=== PATIENT | female | born 1980 | race Caucasian/White ===

== ENCOUNTER 2016-11-17 14:11 | Emergency (ER) | payer BC, OTHER ==
[~2016-11-17] VITALS: Ht 165.1 cm; Wt 74.6 kg
[~2016-11-17 14:11] MED LIST: AMB10 PO; DIAZ10TA PO; DSY50 PO; OXYC-57 PO
[2016-11-17 14:17] VITALS: Ht 165.1 cm; Wt 74.6 kg
[2016-11-17] MEDS ORDERED: KETOROLAC TROMETHAMINE 30 MG/ML VIAL IV STA (15:19)
[2016-11-17] MEDS ORDERED: SODIUM CHLORIDE 0.9% 1000ML 1,000 ML IV STA (15:19)
[2016-11-17] MEDS ORDERED: ONDANSETRON INJ 2 MG/ML 2 ML VIAL IV STA (15:19)
[2016-11-17] MEDS ORDERED: OPTIRAY 320 IV PRN (15:30)
[2016-11-17 15:58] LABS: BASO % 0.1 %; BASO ABS # 0.01 K/uL (0-0.2); COMPLETE YES; EOS % 0.7 %; HEMATOCRIT 41.3 % (37-47); IG% 0.2 %; LYMPH % 11.8 %; LYMPH ABS # 1.43 K/uL (1.2-3.4); MEAN CELL VOLUME 92.4 fL (80-100); MEAN CORPUSCULAR HEMOGLOBIN 31.3 pg (25-34); MEAN CORPUSCULAR HGB CONC 33.9 g/dl (32-36); MEAN PLATELET VOLUME 9.8 fL (7.4-10.4); MONO % 6.3 %; NEUT % 80.9 %; PLATELET COUNT 224 K/uL (130-400); RED BLOOD COUNT 4.47 M/uL (4.2-5.4); WHITE BLOOD COUNT 12.08 K/uL (4.8-10.8)
[2016-11-17 16:09] LABS: URINE APPEARANCE CLOUDY (CLEAR); URINE BILIRUBIN NEG (NEG); URINE COLOR DK YELLOW; URINE EPITHELIAL CELL AUTO >30 /lpf (0-5); URINE NITRITE NEG (NEG); URINE SPECIFIC GRAVITY 1.027 (1.000-1.030); UROBILINOGEN NEG (NEG); ZZUR CULT IF INDIC CLEAN CATCH YES
[2016-11-17 16:16] LABS: MANUAL MICROSCOPIC REQUIRED? NO; REVIEW REQ? YES
[2016-11-17 16:17] LABS: ALT/SGPT 38 U/L (12-78); BLOOD UREA NITROGEN 6 mg/dl (7-18); BUN/CREATININE RATIO 7.2 (10-20); CALCIUM 8.9 mg/dl (8.5-10.1); CARBON DIOXIDE 24 mmol/L (21-32); CHLORIDE 107 mmol/L (98-107); CREATININE 0.85 mg/dl (0.60-1.20); GLUCOSE 99 mg/dl (70-99); POTASSIUM 3.7 mmol/L (3.5-5.1); SODIUM 140 mmol/L (136-145)
[2016-11-17 16:20] LABS: ALKALINE PHOSPHATASE 75 U/L (45-117); AST/SGOT 37 U/L (15-37)
--- NOTE | 2016-11-17 17:31 | DIAGNOSTIC IMAGING REPORT ---
ABDOMEN AND PELVIS CT WITH IV CONTRAST CT DOSE: 375.94 mGy.cm HISTORY: Epigastric abdominal pain. TECHNIQUE: Multiaxial CT images of the abdomen and pelvis were performed following the use of intravenous contrast. COMPARISON STUDY: Abdomen and pelvis CT 06/21/2013. FINDINGS: The lung bases are clear. The liver, spleen, gallbladder, pancreas, kidneys, and adrenal glands are within normal limits. No bowel wall thickening or obstruction. The pelvic organs are unremarkable. No suspicious lytic or blastic osseous lesions. Normal appendix. IMPRESSION: No significant abnormality identified within the abdomen or pelvis. Electronically signed by: Tiago Mariano M.D. 11/17/2016 5:29 PM
[2016-11-17] MEDS ORDERED: ONDA4TAB46 PO (17:45)
[2016-11-17 17:59] VITALS: BP 99/57; PULSE 78; TEMP 36.7; O2SAT 100
--- NOTE | 2016-11-17 18:56 | EMERGENCY ROOM VISIT NOTE ---
History Report prepared by Josh: Marcie Porter Under the Supervision of: Dr. Rocco Santana D.O. First contact with patient: 15:02 Chief Complaint: ABDOMINAL PAIN Stated Complaint: SEVERE ABD. PAIN, VOMITING, DIARRHEA Nursing Triage Summary: pt c/o severe abd pain starting today 1 loose stool 2 emesis History of Present Illness The patient is a 36 year old female who presents to the Emergency Room with complaints of constant diffuse abdominal pain that started this morning. She tried to relieve the pain with a heating pad and it offered minimal relief. The patient is also experiencing nausea and vomiting. She experienced two episodes of vomiting. After the first episode of vomiting she experienced some relief of her pain. Additionally, she experienced one episode of diarrhea. She also experienced some relief of her pain after having diarrhea but not as much relief as the second episode of vomiting. She took some painkillers for the pain but they offered her no relief. The patient denies previous abdominal surgeries as well as recent sick contacts. She is near the end of her menstrual cycle and denies any chance of . She also denies any abnormal vaginal bleeding or discharge along with pain or burning with urination. Source of History: patient Onset: this morning Position: abdomen (diffuse) Timing: constant Modifying Factors (Relieving): other (vomiting, diarrhea) Associated Symptoms: + diarrhea, + nausea, + vomiting, No urinary symptoms ( pain or burning with urination) Note: no abnormal vaginal bleeding or discharge Review of Systems See HPI for pertinent positives & negatives. A total of 10 systems reviewed and were otherwise negative. Past Medical & Surgical Medical Problems: (1) Bipolar disorder Family History No pertinent family history Social History Smoking Status: Current Some Day Smoker Alcohol Use: occasionally Marital Status: Housing Status: lives with family Occupation Status: unemployed Current/Historical Medications Scheduled Cyclobenzaprine Hcl (Flexeril), 10 MG PO DIRECTED Diazepam (Valium), 6.25 MG PO BID Epinephrine (Epipen), 0.3 MG IM UD [place] Carbonate Ext Rel (Lithobid Ext Rel), 300 MG PO TID Sertraline Hcl (Zoloft), 50 MG PO DAILY Trazodone Hcl (Desyrel *), 50 MG PO HS Scheduled PRN Ondansetron Hcl (Zofran), 4 MG PO TID PRN for Nausea Oxycodone/Acetaminophen 5MG/325MG (Percocet 5MG/325MG), 1-2 TABS PO Q4H PRN for Pain Miscellaneous Medications Zolpidem Tartrate (Ambien *), 10 MG PO Allergies Coded Allergies: POLLEN (Unverified Allergy, Unknown, SEASONAL ALLERGIES, 11/17/16) Physical Exam Vital Signs Date Time Temp Pulse Resp B/P Pulse Ox O2 Delivery O2 Flow Rate FiO2 11/17/16 17:59 36.7 78 18 99/57 100 11/17/16 16:31 78 18 99/57 100 11/17/16 14:17 36.7 95 20 97/64 98 Room Air Physical Exam GENERAL: alert, sitting up in bed, well appearing, well nourished, no distress, non-toxic EYE EXAM: normal conjunctiva OROPHARYNX: no exudate, no erythema, lips, buccal mucosa, and tongue normal and mucous membranes are moist NECK: supple, no nuchal rigidity, no adenopathy, non-tender LUNGS: Clear to auscultation. Normal chest wall mechanics HEART: no murmurs, S1 normal and S2 normal ABDOMEN: abdomen soft, tender in epigastric region, normo-active bowel sounds, no masses, no rebound or guarding. BACK: Back is symmetrical on inspection and there is no deformity, no midline tenderness, no CVA tenderness. SKIN: no rashes and no bruising UPPER EXTREMITIES: upper extremities are grossly normal. LOWER EXTREMITIES: No pitting edema. NEURO EXAM: Normal sensorium, cranial nerves II-XII grossly intact, normal speech, no gross weakness of arms, no gross weakness of legs. Medical Decision & Procedures ER Provider Diagnostic Interpretation: CT results have been interpreted by the radiologist and reviewed by me. ABDOMEN AND PELVIS CT WITH IV CONTRAST CT DOSE: 375.94 mGy.cm HISTORY: Epigastric abdominal pain. TECHNIQUE: Multiaxial CT images of the abdomen and pelvis were performed following the use of intravenous contrast. COMPARISON STUDY: Abdomen and pelvis CT 06/21/2013. FINDINGS: The lung bases are clear. The liver, spleen, gallbladder, pancreas, kidneys, and adrenal glands are within normal limits. No bowel wall thickening or obstruction. The pelvic organs are unremarkable. No suspicious lytic or blastic osseous lesions. Normal appendix. IMPRESSION: No significant abnormality identified within the abdomen or pelvis. Electronically signed by: Tiago Mariano M.D. 11/17/2016 5:29 PM Laboratory Results 1/3/17 15:35 Red Blood Count 4.47, Mean Corpuscular Volume 92.4, Mean Corpuscular Hemoglobin 31.3, Mean Corpuscular Hemoglobin Concent 33.9, Mean Platelet Volume 9.8, Neutrophils (%) (Auto) 80.9, Lymphocytes (%) (Auto) 11.8, Monocytes (%) (Auto) 6.3, Eosinophils (%) (Auto) 0.7, Basophils (%) (Auto) 0.1, Neutrophils # (Auto) 9.76, Lymphocytes # (Auto) 1.43, Monocytes # (Auto) 0.76, Eosinophils # (Auto) 0.09, Basophils # (Auto) 0.01 11/17/16 15:35 Test 11/17/16 15:30 11/17/16 15:35 Urine Color DK YELLOW Urine Appearance CLOUDY (CLEAR) Urine pH 5.0 (4.5-7.5) Urine Specific [place] 1.027 (1.000-1.030) Urine Protein NEG (NEG) Urine Glucose (UA) NEG (NEG) Urine Ketones NEG (NEG) Urine Occult Blood NEG (NEG) Urine Nitrite NEG (NEG) Urine Bilirubin NEG (NEG) Urine Urobilinogen NEG (NEG) Urine Leukocyte Esterase SMALL (NEG) Urine WBC (Auto) 10-30 /hpf (0-5) Urine RBC (Auto) 0-4 /hpf (0-4) Urine Hyaline Casts (Auto) 1-5 /lpf (0-5) Urine Epithelial Cells (Auto) >30 /lpf (0-5) Urine Bacteria (Auto) 1+ (NEG) Urine Renal Epithelial Cells /lpf (0-5) Urine Crystals CALCIUM OXALATE (NONE Urine Pathogenic Casts /lpf (0) Urine Test NEG (NEG) White Blood Count 12.08 K/uL (4.8-10.8) Red Blood Count 4.47 M/uL (4.2-5.4) Hemoglobin 14.0 g/dL (12.0-16.0) Hematocrit 41.3 % (37-47) Mean Corpuscular Volume 92.4 fL (80-100) Mean Corpuscular Hemoglobin 31.3 pg (25-34) Mean Corpuscular Hemoglobin Concent 33.9 g/dl (32-36) Platelet Count 224 K/uL (130-400) Mean Platelet Volume 9.8 fL (7.4-10.4) Neutrophils (%) (Auto) 80.9 % Lymphocytes (%) (Auto) 11.8 % Monocytes (%) (Auto) 6.3 % Eosinophils (%) (Auto) 0.7 % Basophils (%) (Auto) 0.1 % Neutrophils # (Auto) 9.76 K/uL (1.4-6.5) Lymphocytes # (Auto) 1.43 K/uL (1.2-3.4) Monocytes # (Auto) 0.76 K/uL (0.11-0.59) Eosinophils # (Auto) 0.09 K/uL (0-0.5) Basophils # (Auto) 0.01 K/uL (0-0.2) RDW Standard Deviation 40.8 fL (36.4-46.3) RDW Coefficient of Variation 12.1 % (11.5-14.5) Immature Granulocyte % (Auto) 0.2 % Immature Granulocyte # (Auto) 0.03 K/uL (0.00-0.02) Anion Gap 9.0 mmol/L (3-11) Est Creatinine Clear Calc Drug Dose 92.5 ml/min Estimated GFR () 102.2 Estimated GFR (Non- 88.2 BUN/Creatinine Ratio 7.2 (10-20) Calcium Level 8.9 mg/dl (8.5-10.1) Total Bilirubin 0.2 mg/dl (0.2-1) Direct Bilirubin < 0.1 mg/dl (0-0.2) Aspartate Amino Transf (AST/SGOT) 37 U/L (15-37) Alanine Aminotransferase (ALT/SGPT) 38 U/L (12-78) Alkaline Phosphatase 75 U/L (45-117) Total Protein 7.5 gm/dl (6.4-8.2) Albumin 4.0 gm/dl (3.4-5.0) Lipase 131 U/L (73-393) Laboratory results per my review. Medications Administered Medications (Trade) Dose Ordered Sig/Maria D Route Start Time Stop Time Status Last Admin Dose Admin Sodium Chloride (Nss 1000ml) 1,000 ml @ 999 mls/hr Q1H1M STAT IV 11/17/16 15:19 11/17/16 16:19 DC 11/17/16 15:19 999 MLS/HR Ondansetron HCl (Zofran Inj) 4 mg NOW STAT IV 11/17/16 15:19 11/17/16 15:20 DC 11/17/16 15:50 4 MG Ketorolac Tromethamine (Toradol Inj) 30 mg NOW STAT IV 11/17/16 15:19 11/17/16 15:20 DC 11/17/16 15:50 30 MG ED Course ED COURSE: Vital signs were reviewed and showed hypotensive. The patients medical record was reviewed The above diagnostic studies were performed and reviewed. ED treatments and interventions as stated above. 1506: The patient was evaluated in room A8. A complete history and physical examination was performed. 1519: Ordered Toradol 30 mg IV, Zofran 4 mg IV, Sodium Chloride 1000 ml @ 999 mls/hr IV 1553: I reassessed the patient. She is doing much better. 1743: Upon reevaluation, the patient is doing well. I discussed my findings with the patient and she understands and agrees with the treatment plan. Based on the patients age, coexisting illnesses, exam and lab findings the decision to treat as an outpatient was made. The patient remained stable while under my care. The patient appeared well at the time of discharge. Medical Decision Differential diagnoses includes but is not limited to gastritis, peptic ulcer disease, GERD, gallbladder disease, pancreatitis, small bowel obstruction, acute coronary syndrome, pericarditis, ischemic bowel, irritable bowel disease, irritable bowel syndrome, appendicitis, diverticulitis, malignancy, hernia, urinary tract infection, torsion, /ectopic , perforation, trauma, infectious. Patient is a 36-year-old female who presents the ER for epigastric abdominal pain. It's associated with vomiting and one episode of diarrhea. On exam she is no acute signs peritonitis. CBC has a leukocytosis of 12,000 without significant anemia. BMP along with LFTs, bilirubin and lipase are unremarkable. UA was contaminated. She had no urinary symptoms. CT of her abdomen pelvis was negative. On reevaluation her abdomen was on skin benign. She was given IV morphine along with normal saline and Zofran. Patient was discharged follow-up with epigastric abdominal pain to her PCPs office. Discussed with Pt concerning signs and symptoms to watch out for. Pt was instructed to follow up with their PCP and discussed with the patient their option to return to the ED at anytime for persistent or worsening symptoms. The appropriate anticipatory guidance and out-patient management, including indications for return to the emergency department, were explained at length to the patient and understood. Impression Primary Impression: Epigastric abdominal pain Scribe Attestation The scribe's documentation has been prepared under my direction and personally reviewed by me in its entirety. I confirm that the note above accurately reflects all work, treatment, procedures, and medical decision making performed by me. Departure Information Dispostion Home / Self-Care Prescriptions Ondansetron Hcl (ZOFRAN) 4 Mg Tab 4 MG PO TID Y for Nausea, #20 TAB Prov: Rocco Santana, DO 11/17/16 Referrals Rowdy Jordan M.D. (PCP) Forms Call Back Authorization, HOME CARE DOCUMENTATION FORM, IMPORTANT VISIT INFORMATION, My [facility] Patient Instructions Abdominal Pain - [facility] Additional Instructions Please follow up with your primary care doctor in the next 24 hours. Any worsening of your symptoms, please return to the ED immediately. This includes any fevers greater than 100.4, persistent nausea vomiting, worsening the pain, or any other concerning signs or symptoms from your standpoint.
[2016-11-26] MEDS ORDERED: FEXO1TAB49 PO (14:15)
[2017-04-13] MEDS ORDERED: EPP3/2 IM (10:29)
[2017-04-13] MEDS ORDERED: LITH1TAB10 PO (10:37)
[2017-04-13] MEDS ORDERED: SERT1TAB71 PO (10:56)
== END 2016-11-17 18:00 | disposition home or self-care (01) ==
LOC: C.EDB 14:15 → C.EDA 18:00
DX: R10.13 Epigastric pain (principal); R11.2 Nausea with vomiting, unspecified; F31.9 Bipolar disorder, unspecified; F17.210 Nicotine dependence, cigarettes, uncomplicated; Z79.899 Other long term (current) drug therapy

== ENCOUNTER → 2016-11-26 | Outpatient (CLI) | payer BC ==
[~2016-11-26] MED LIST changes: +CYCL10TA6 PO; +DIAZ5TAB PO; +EPP3/2 IM; +FEXO1TAB45 PO; +FEXO1TAB49 PO; +FEXO5TAB2 PO; +LITH1TAB10 PO; +ONDA4TAB10 SL; +ONDA4TAB46 PO; +SERT1TAB71 PO; +ZOLP10TA6 PO
--- NOTE | 2016-11-26 15:46 | DIAGNOSTIC IMAGING REPORT ---
CERVICAL SPINE 5 VIEWS CLINICAL HISTORY: Cervical facet syndrome. FINDINGS: AP, lateral, bilateral oblique, and odontoid views of the cervical spine are obtained. No prior studies are available for comparison at the time of dictation. The skeletal structures are well mineralized. There is no radiographic evidence of fracture or subluxation. The odontoid process and lateral masses appear intact on the open mouth view. The spinolaminar line is preserved. Vertebral body height and alignment are maintained. There is straightening of cervical lordosis with mild reversal centered at C5. The spinous processes appear intact. Small anterior osteophytes are seen from C5 through C7. There is mild degenerative disc space narrowing seen at C6-C7 and C7-T1. The remaining intervertebral disc spaces are normal. No facet arthropathy is identified. There is no evidence of neuroforaminal stenosis on the oblique views. The prevertebral soft tissues are within normal limits. Visualized apical lung parenchyma appears clear. IMPRESSION: 1. No acute bony abnormality is seen involving the cervical spine. 2. Minimal degenerative change as above. Electronically signed by: Jose Delarosa M.D. 11/26/2016 3:45 PM Dictated Date/Time: 11/26/2016 3:43 PM
== END | disposition home or self-care (01) ==
LOC: C.RADBC 15:25
PROVIDERS: ATTEND Anesthesiology
DX: M53.82 Other specified dorsopathies, cervical region (principal)

== ENCOUNTER 2017-02-26 20:58 | Emergency (ER) | payer BC ==
[~2017-02-26] VITALS: Ht 152.4 cm; Wt 77.4 kg
[~2017-02-26 20:58] MED LIST changes: -CYCL10TA6 PO; -DIAZ5TAB PO; -EPP3/2 IM; -FEXO1TAB45 PO; -FEXO5TAB2 PO; -LITH1TAB10 PO; -ONDA4TAB10 SL; -ONDA4TAB46 PO; -OXYC-57 PO; -SERT1TAB71 PO; -ZOLP10TA6 PO
[2017-02-26 21:03] VITALS: TEMP 36.8; Ht 152.4 cm; Wt 77.4 kg
[2017-02-26] MEDS ORDERED: SODIUM CHLORIDE 0.9% 1000ML 1,000 ML IV STA (21:28)
[2017-02-26] MEDS ORDERED: MoRPHine SULFATE 10 MG/ML CARP/VIAL IV STA (21:28)
[2017-02-26] MEDS ORDERED: PROMETHAZINE HCL INJ 25 MG in SODIUM CHLORIDE 0.9% 50ML 50 ML IV STA (21:28)
--- NOTE | 2017-02-26 21:29 | EMERGENCY ROOM VISIT NOTE ---
History Report prepared by Josh: Silvia Abraham Under the Supervision of: Dr. Leonides Berrios M.D. First contact with patient: 21:09 Chief Complaint: GI ASSESSMENT Stated Complaint: ABD PAIN,NAUSEA,DIARRHEA History of Present Illness The patient is a 36 year old female who presents to the Emergency Room with complaints of intermittent severe abdominal pain beginning today. The patient also notes that she is experiencing nausea and diarrhea. She notes she has had multiple episodes of diarrhea. She did take Zofran this afternoon and had no changes in her symptoms. The patient denies chance, abdominal surgery , or recent antibiotic use. Source of History: patient Onset: today Position: abdomen Symptom Intensity: severe Timing: intermittent Associated Symptoms: + diarrhea, + nausea Note: The patient denies chance, abdominal surgery, or recent antibiotic use. Review of Systems See HPI for pertinent positives & negatives. A total of 10 systems reviewed and were otherwise negative. Past Medical & Surgical Medical Problems: (1) Bipolar disorder Family History No pertinent family history Social History Smoking Status: Never Smoker Alcohol Use: occasionally Marital Status: Housing Status: lives with family Occupation Status: unemployed Current/Historical Medications Scheduled Diazepam (Valium), 7.5 MG PO BID Fexofenadine Hcl (Yudith), 120 MG PO DAILY [place] Carbonate Ext Rel (Lithobid Ext Rel), 300 MG PO TID Ondasetron Odt (Zofran Odt), 4 MG SL Q6H Sertraline Hcl (Zoloft), 50 MG PO DAILY Trazodone HCl (Trazodone HCl), 50 MG PO HS Zolpidem Tartrate (Zolpidem Tartrate), 10 MG PO HS Scheduled PRN Cyclobenzaprine Hcl (Flexeril), 10 MG PO UD PRN for Muscle Spasm Epinephrine (Epipen), 0.3 MG IM UD PRN for ALLERGIC REACTION Allergies Coded Allergies: POLLEN (Unverified Allergy, Unknown, SEASONAL ALLERGIES, 11/17/16) Physical Exam Vital Signs Date Time Temp Pulse Resp B/P Pulse Ox O2 Delivery O2 Flow Rate FiO2 02/26/17 23:41 72 20 102/63 100 02/26/17 22:14 86 02/26/17 22:08 92 20 108/67 98 Room Air 02/26/17 21:03 36.8 90 18 112/75 98 Room Air Physical Exam GENERAL: Patient is a healthy-appearing well-nourished HEAD: Normocephalic atraumatic EYES: Ocular movements intact pupils equal and react to light OROPHARYNX mucous membranes are moist no exudates present no erythema or edema present NECK: Supple no nuchal rigidity CHEST: Good equal expansion LUNGS: Clear and equal to auscultation CARDIAC: Normal S1 and S2 ABDOMEN: Soft nontender no guarding BACK: No CVA tenderness EXTREMITIES: No pain upon palpation normal muscle strength in all groups no clubbing cyanosis or edema NEURO: Patient is following commands is answering questions appropriately. Alert and oriented x3 Cranial Nerves 2-12 grossly intact Medical Decision & Procedures ER Provider Diagnostic Interpretation: X-ray results as stated below per interpretation by me and the radiologist: PA CHEST WITH ABDOMINAL SERIES CLINICAL HISTORY: Generalized abdominal pain. Nausea and diarrhea. FINDINGS: A PA chest radiograph is compared to study dated 07/12/2007. The cardiomediastinal silhouette is unremarkable. The lungs and pleural spaces are clear. No pneumothorax is seen. The bony thorax is grossly intact. Supine and erect abdominal radiographs are correlated with abdominal CT dated 11/17/2016. There is a nonobstructed abdominal bowel gas pattern. No evidence of intraperitoneal free air is seen. There are calcified pelvic phleboliths. The lumbosacral spine and bony pelvis appear intact. IMPRESSION: 1. No active disease in the chest. 2. Nonobstructed abdominal bowel gas pattern. Electronically signed by: Jose Delarosa M.D. 02/26/2017 10:01 PM Dictated Date/Time: 02/26/2017 9:59 PM Laboratory Results 02/26/17 21:38 Red Blood Count 4.49, Mean Corpuscular Volume 91.8, Mean Corpuscular Hemoglobin 31.6, Mean Corpuscular Hemoglobin Concent 34.5, Mean Platelet Volume 9.8, Neutrophils (%) (Auto) 76.7, Lymphocytes (%) (Auto) 17.1, Monocytes (%) (Auto) 5.3, Eosinophils (%) (Auto) 0.7, Basophils (%) (Auto) 0.1, Neutrophils # (Auto) 7.65, Lymphocytes # (Auto) 1.71, Monocytes # (Auto) 0.53, Eosinophils # (Auto) 0.07, Basophils # (Auto) 0.01 02/26/17 21:38 Test 02/26/17 21:38 White Blood Count 9.98 K/uL (4.8-10.8) Red Blood Count 4.49 M/uL (4.2-5.4) Hemoglobin 14.2 g/dL (12.0-16.0) Hematocrit 41.2 % (37-47) Mean Corpuscular Volume 91.8 fL (80-100) Mean Corpuscular Hemoglobin 31.6 pg (25-34) Mean Corpuscular Hemoglobin Concent 34.5 g/dl (32-36) Platelet Count 226 K/uL (130-400) Mean Platelet Volume 9.8 fL (7.4-10.4) Neutrophils (%) (Auto) 76.7 % Lymphocytes (%) (Auto) 17.1 % Monocytes (%) (Auto) 5.3 % Eosinophils (%) (Auto) 0.7 % Basophils (%) (Auto) 0.1 % Neutrophils # (Auto) 7.65 K/uL (1.4-6.5) Lymphocytes # (Auto) 1.71 K/uL (1.2-3.4) Monocytes # (Auto) 0.53 K/uL (0.11-0.59) Eosinophils # (Auto) 0.07 K/uL (0-0.5) Basophils # (Auto) 0.01 K/uL (0-0.2) RDW Standard Deviation 41.3 fL (36.4-46.3) RDW Coefficient of Variation 12.2 % (11.5-14.5) Immature Granulocyte % (Auto) 0.1 % Immature Granulocyte # (Auto) 0.01 K/uL (0.00-0.02) Urine Color YELLOW Urine Appearance CLEAR (CLEAR) Urine pH 5.5 (4.5-7.5) Urine Specific [place] 1.011 (1.000-1.030) Urine Protein NEG (NEG) Urine Glucose (UA) NEG (NEG) Urine Ketones NEG (NEG) Urine Occult Blood NEG (NEG) Urine Nitrite NEG (NEG) Urine Bilirubin NEG (NEG) Urine Urobilinogen NEG (NEG) Urine Leukocyte Esterase TRACE (NEG) Urine WBC (Auto) 1-5 /hpf (0-5) Urine RBC (Auto) 0-4 /hpf (0-4) Urine Hyaline Casts (Auto) 1-5 /lpf (0-5) Urine Epithelial Cells (Auto) >30 /lpf (0-5) Urine Bacteria (Auto) NEG (NEG) Anion Gap 9.0 mmol/L (3-11) Est Creatinine Clear Calc Drug Dose 99.3 ml/min Estimated GFR () 124.9 Estimated GFR (Non- 107.7 BUN/Creatinine Ratio 10.4 (10-20) Calcium Level 9.4 mg/dl (8.5-10.1) Total Bilirubin 0.5 mg/dl (0.2-1) Direct Bilirubin < 0.1 mg/dl (0-0.2) Aspartate Amino Transf (AST/SGOT) 27 U/L (15-37) Alanine Aminotransferase (ALT/SGPT) 45 U/L (12-78) Alkaline Phosphatase 81 U/L (45-117) Total Protein 7.7 gm/dl (6.4-8.2) Albumin 4.3 gm/dl (3.4-5.0) Lipase 171 U/L (73-393) [place] Level 0.4 mMOL/L (0.6-1.2) Labs reviewed by ED physician. Medications Administered Medications (Trade) Dose Ordered Sig/Maria D Route Start Time Stop Time Status Last Admin Dose Admin Sodium Chloride (Nss 1000ml) 1,000 ml @ 999 mls/hr Q1H1M STAT IV 02/26/17 21:28 02/26/17 22:28 DC 02/26/17 21:45 999 MLS/HR Morphine Sulfate 6 mg 6 mg NOW STAT IV 02/26/17 21:28 02/26/17 21:31 DC 02/26/17 22:07 6 MG Promethazine HCl/ Sodium Chloride (Phenergan Inj/ Nss 50ml) 51 ml @ 204 mls/hr NOW STAT IV 02/26/17 21:28 02/26/17 21:42 DC 02/26/17 22:06 204 MLS/HR Cholestyramine Resin (Questran Powder Light) 4 gm BID@10,22 STAT PO 02/26/17 22:26 02/26/17 22:27 DC 02/26/17 22:46 4 GM Ondansetron HCl (ZOFRAN ODT 4MG Home Pack) 1 homepack UD ONCE PO 02/26/17 22:30 02/26/17 22:31 DC 02/26/17 23:38 1 HOMEPACK ED Course 2121: Past medical records reviewed. The patient was evaluated in room C5. A complete history and physical examination was performed. 2127: Promethazine HCl 25 mg/ Sodium Chloride 51 ml @ 204 mls/hr IV, Morphine Sulfate Inj 6 mg IV, Sodium Chloride 1,000 ml @ 999 mls/hr IV. 6: Questran Powder Light 4 gm PO. 2230: Zofran ODT 4 MG Home Pack 1 homepack PO. 2330: Zofran ODT 4 MG Home Pack 1 homepack PO. 2329: Upon reexamination the patient is hemodynamically stable. I discussed results and treatment plan with the patient. She verbalizes agreement and understanding. The patient is ready for discharge. Medical Decision The patient is a 36 year old female who presents to the ED with complaints of abdominal pain. Differential diagnosis: Etiologies such as appendicitis, diverticulitis, PUD, biliary pathology, UTI, pancreatitis, obstruction, mesenteric ischemia, aortic pathology, infections, inflammatory bowel disease, renal colic, as well as others were entertained. This is a 36-year-old female who presents emergency department complaining of gastroenteritis-like symptoms. The patient reports she has been having diarrhea for the past day or so. Serial abdominal examinations were performed in the emergency department and at no time did the patient exhibit a surgical abdomen or abdominal tenderness. She does not have an elevation in her white blood count cell count and is not . In addition the patient's lithium level is subtherapeutic. She has a normal renal profile liver profile and lipase. An IV was established, patient given normal saline bolus, Reglan, Morphine. The patient was able to provide a stool sample in the emergency department. This was negative for C. difficile and will be sent for culture. In the meanwhile the patient is going to take Zofran at home along with probiotic yogurt for the diarrhea. The patient was also given cholestyramine in the emergency department. Patient was in agreement with the treatment plan. Impression Primary Impression: Gastroenteritis Scribe Attestation The scribe's documentation has been prepared under my direction and personally reviewed by me in its entirety. I confirm that the note above accurately reflects all work, treatment, procedures, and medical decision making performed by me. Departure Information Dispostion Home / Self-Care Prescriptions Ondasetron Odt (ZOFRAN ODT) 4 Mg Tab 4 MG SL Q6H for Nausea, #6 TAB Prov: Leonides Berrios MD 02/26/17 Referrals Rowdy Jordan M.D. (PCP) Forms HOME CARE DOCUMENTATION FORM, IMPORTANT VISIT INFORMATION, School Instructions, Work Instructions Patient Instructions ED Diet Vomiting Diarrhea, ED Gastroenteritis Report Pend, My [facility] Additional Instructions Culture results are usually available in approx 48 hours You have been examined and treated today on an emergency basis only. This is not a substitute for, or an effort to provide, complete comprehensive medical care. It is impossible to recognize and treat all injuries or illnesses in a single emergency department visit. It is therefore important that you follow up closely with Dr Jordan. Call as soon as possible for an appointment. Thank you for your time and consideration. I look forward to speaking with you again soon. Please don't hesitate to call us if you have any questions.
[2017-02-26] MEDS ORDERED: FEXO1TAB45 PO (21:39)
[2017-02-26 21:50] LABS: BASO % 0.1 %; BASO ABS # 0.01 K/uL (0-0.2); COMPLETE YES; EOS % 0.7 %; HEMATOCRIT 41.2 % (37-47); IG% 0.1 %; LYMPH % 17.1 %; LYMPH ABS # 1.71 K/uL (1.2-3.4); MEAN CELL VOLUME 91.8 fL (80-100); MEAN CORPUSCULAR HEMOGLOBIN 31.6 pg (25-34); MEAN CORPUSCULAR HGB CONC 34.5 g/dl (32-36); MEAN PLATELET VOLUME 9.8 fL (7.4-10.4); MONO % 5.3 %; NEUT % 76.7 %; PLATELET COUNT 226 K/uL (130-400); RED BLOOD COUNT 4.49 M/uL (4.2-5.4); WHITE BLOOD COUNT 9.98 K/uL (4.8-10.8)
[2017-02-26 21:57] LABS: URINE APPEARANCE CLEAR (CLEAR); URINE BILIRUBIN NEG (NEG); URINE COLOR YELLOW; URINE EPITHELIAL CELL AUTO >30 /lpf (0-5); URINE NITRITE NEG (NEG); URINE PH 5.5 (4.5-7.5); URINE SPECIFIC GRAVITY 1.011 (1.000-1.030); UROBILINOGEN NEG (NEG)
[2017-02-26 22:00] LABS: MANUAL MICROSCOPIC REQUIRED? NO; REVIEW REQ? NO
--- NOTE | 2017-02-26 22:03 | DIAGNOSTIC IMAGING REPORT ---
PA CHEST WITH ABDOMINAL SERIES CLINICAL HISTORY: Generalized abdominal pain. Nausea and diarrhea. FINDINGS: A PA chest radiograph is compared to study dated 07/12/2007. The cardiomediastinal silhouette is unremarkable. The lungs and pleural spaces are clear. No pneumothorax is seen. The bony thorax is grossly intact. Supine and erect abdominal radiographs are correlated with abdominal CT dated 11/17/2016. There is a nonobstructed abdominal bowel gas pattern. No evidence of intraperitoneal free air is seen. There are calcified pelvic phleboliths. The lumbosacral spine and bony pelvis appear intact. IMPRESSION: 1. No active disease in the chest. 2. Nonobstructed abdominal bowel gas pattern. Electronically signed by: Jose Delarosa M.D. 02/26/2017 10:01 PM Dictated Date/Time: 02/26/2017 9:59 PM
[2017-02-26 22:06] LABS: ALT/SGPT 45 U/L (12-78); BLOOD UREA NITROGEN 8 mg/dl (7-18); BUN/CREATININE RATIO 10.4 (10-20); CALCIUM 9.4 mg/dl (8.5-10.1); CARBON DIOXIDE 24 mmol/L (21-32); CHLORIDE 106 mmol/L (98-107); CREATININE 0.72 mg/dl (0.60-1.20); GLUCOSE 96 mg/dl (70-99); POTASSIUM 3.8 mmol/L (3.5-5.1); SODIUM 139 mmol/L (136-145)
[2017-02-26 22:09] LABS: ALKALINE PHOSPHATASE 81 U/L (45-117); AST/SGOT 27 U/L (15-37)
[2017-02-26] MEDS ORDERED: CHOLESTYRAMINE LIGHT 4 GM PKT PO STA (22:26)
[2017-02-26] MEDS ORDERED: ONDANSETRON HOME PACK 4MG OD TAB PO ONE ×2 (22:30→23:30)
[2017-02-26] MEDS ORDERED: ONDA4TAB10 SL (23:25)
[2017-02-26 23:41] VITALS: BP 102/63; PULSE 72; O2SAT 100
--- NOTE | 2017-03-01 12:14 | Pharmacy Progress Note ---
ED Pharmacist Culture FollowUp Date of Service: Mar 01, 2017. Patient's stool shigatoxin screen was negative fore e coli shiga toxin 1 and toxin 2. Stool Culture [id number] was finalized as well, no salmonella, shigella or campylobacter isolated. She was dx w/ gastroenteritis and was not discharged on abx. No action required.
[2017-04-13] MEDS ORDERED: EPP3/2 IM (10:29)
[2017-04-13] MEDS ORDERED: LITH1TAB10 PO (10:37)
[2017-04-13] MEDS ORDERED: SERT1TAB71 PO (10:56)
== END 2017-02-26 23:43 | disposition home or self-care (01) ==
LOC: C.EDB 21:01 → C.EDC 23:43
DX: R10.9 Unspecified abdominal pain (principal); F31.9 Bipolar disorder, unspecified

== ENCOUNTER 2017-04-13 14:56 | Emergency (ER) | payer BC ==
[~2017-04-13] VITALS: Ht 162.6 cm; Wt 77.1 kg
[~2017-04-13 14:56] MED LIST changes: -AMB10 PO; -DIAZ10TA PO; -DSY50 PO; +EPP3/2 IM; +FEXO1TAB45 PO; -FEXO1TAB49 PO; +LITH1TAB10 PO; +ONDA4TAB10 SL; +SERT1TAB71 PO
[2017-04-13 15:02] VITALS: Ht 162.6 cm; Wt 77.1 kg
[2017-04-13] MEDS ORDERED: KETOROLAC TROMETHAMINE 30 MG/ML VIAL IV STA (16:32)
[2017-04-13] MEDS ORDERED: ONDANSETRON INJ 2 MG/ML 2 ML VIAL IV STA (16:32)
[2017-04-13] MEDS ORDERED: SODIUM CHLORIDE 0.9% 1000ML 2,000 ML IV STA (16:32)
[2017-04-13 16:41] LABS: HEMATOCRIT 40.8 % (37-47); MEAN CELL VOLUME 92.3 fL (80-100); MEAN CORPUSCULAR HEMOGLOBIN 30.5 pg (25-34); MEAN CORPUSCULAR HGB CONC 33.1 g/dl (32-36); MEAN PLATELET VOLUME 9.5 fL (7.4-10.4); PLATELET COUNT 243 K/uL (130-400); RED BLOOD COUNT 4.42 M/uL (4.2-5.4); WHITE BLOOD COUNT 13.29 K/uL (4.8-10.8)
[2017-04-13] MEDS ORDERED: FEXO5TAB2 PO (16:55)
--- NOTE | 2017-04-13 17:01 | EMERGENCY ROOM VISIT NOTE ---
History Report prepared by Josh: Genet Bettencourt Under the Supervision of: Juanjo DaviesO. First contact with patient: 16:18 Chief Complaint: ABDOMINAL PAIN Stated Complaint: ABD PAIN, CRAMPING, NAUSEA/DIARRHEA Nursing Triage Summary: Pt reports diffuse abd pain since Sun. Diarrhea, nausea. Pt reports "burping alot". History of Present Illness The patient is a 36 year old female who presents to the Emergency Room with complaints of waxing and waning diffuse abdominal pain starting 2 days ago and worsening yesterday. She describes it as a sharp, cramping pain. She was having an intense argument with her friend when she had the onset of her symptoms. She has been applying heat pads with temporary relief. She started having nausea and vomiting today. She had one vomiting episode today. She started having diarrhea yesterday. The patient's recently had diarrhea for about a week. Her last menstrual period was about 15-20 days ago which was normal for her. She denies any chance of . She also denies any recent antibiotics , travels, or drinking from questionable sources of water. She does not have a history of any abdominal surgeries. Pt denies headache, change in vision, fevers , chest pain, shortness of breath, vaginal bleeding or discharge, pain with urination, and melena. Source of History: patient Onset: 2 days ago Position: abdomen Quality: sharp, cramping Timing: waxes/wanes Modifying Factors (Relieving): heat (with temporary relief) Associated Symptoms: + diarrhea, + nausea, + vomiting, No SOB, No chest pain , No fevers, No headache Review of Systems See HPI for pertinent positives & negatives. A total of 10 systems reviewed and were otherwise negative. Past Medical & Surgical Medical Problems: (1) Bipolar disorder Family History No pertinent family history Social History Smoking Status: Former Smoker Alcohol Use: occasionally Marital Status: Housing Status: lives with family Occupation Status: unemployed Current/Historical Medications Scheduled Diazepam (Valium), 7.5 MG PO BID Fexofenadine-Pseudoephedrine (Yudith-D 12 Hour Allergy), 1.5 TAB PO DAILY [place] Carbonate Ext Rel (Lithobid Ext Rel), 300 MG PO TID Sertraline Hcl (Zoloft), 25 MG PO BID Trazodone HCl (Trazodone HCl), 50 MG PO HS Zolpidem Tartrate (Zolpidem Tartrate), 10 MG PO HS Scheduled PRN Cyclobenzaprine Hcl (Flexeril), 10 MG PO UD PRN for Muscle Spasm Epinephrine (Epipen), 0.3 MG IM UD PRN for ALLERGIC REACTION Ondansetron Hcl (Zofran), 4 MG PO TID PRN for Nausea Allergies Coded Allergies: POLLEN (Unverified Allergy, Unknown, SEASONAL ALLERGIES, 11/17/16) Physical Exam Vital Signs Date Time Temp Pulse Resp B/P Pulse Ox O2 Delivery O2 Flow Rate FiO2 04/13/17 21:51 36.4 77 16 105/66 99 04/13/17 21:50 77 16 105/66 99 Room Air 04/13/17 20:23 76 16 105/68 99 Room Air 04/13/17 19:59 78 16 107/65 97 Room Air 04/13/17 17:34 80 16 106/68 97 Room Air 04/13/17 15:02 36.4 99 18 104/68 97 Room Air Physical Exam GENERAL: Sitting up in bed, disheveled, no acute distress, non-toxic EYE EXAM: normal conjunctiva OROPHARYNX: no exudate, no erythema, lips, buccal mucosa, and tongue normal and mucous membranes are moist NECK: supple, no nuchal rigidity, no adenopathy, non-tender LUNGS: Clear to auscultation. Normal chest wall mechanics HEART: no murmurs, S1 normal and S2 normal ABDOMEN: abdomen soft, non-tender, normo-active bowel sounds, no masses, no rebound or guarding. BACK: Back is symmetrical on inspection and there is no deformity, no midline tenderness, no CVA tenderness. SKIN: no rashes and no bruising UPPER EXTREMITIES: upper extremities are grossly normal. LOWER EXTREMITIES: No pitting edema. NEURO EXAM: Normal sensorium, cranial nerves II-XII grossly intact, normal speech, no gross weakness of arms, no gross weakness of legs. Medical Decision & Procedures ER Provider Diagnostic Interpretation: US:Per my review, radiologist interpretation. ULTRASOUND RIGHT UPPER QUADRANT ABDOMEN CLINICAL HISTORY: Epigastric abdominal pain. COMPARISON STUDY: Abdominal CT dated 11/17/2016. TECHNIQUE: Real-time, grayscale, and color flow sonography of the right upper quadrant of the abdomen was performed. Images are reviewed in the transverse and longitudinal planes. FINDINGS: Liver: The liver is enlarged and demonstrates heterogeneously increased echotexture consistent with hepatic steatosis. Fatty sparing is noted adjacent to the gallbladder fossa. There is no intrahepatic biliary ductal dilatation. The main portal vein is patent. Gallbladder: The gallbladder is normal in appearance. No gallstones are identified. There is no gallbladder wall thickening or pericholecystic fluid. A sonographic Jc's sign is reportedly absent. The common bile duct measures up to 0.3 cm in diameter. Pancreas: Visualized portions of the pancreatic head and body are normal in appearance. The splenic vein is patent. Right kidney: Survey images of the right kidney demonstrate normal size and echotexture. There is no hydronephrosis. Ascites: None. IMPRESSION: 1. No acute sonographic abnormality is identified in the right upper quadrant. No gallstones are seen. 2. Hepatomegaly and hepatic steatosis. Electronically signed by: Jose Delarosa M.D. 04/13/2017 5:33 PM Dictated Date/Time: 04/13/2017 5:32 PM Laboratory Results 04/13/17 16:25 Red Blood Count 4.42, Mean Corpuscular Volume 92.3, Mean Corpuscular Hemoglobin 30.5, Mean Corpuscular Hemoglobin Concent 33.1, Mean Platelet Volume 9.5, Neutrophils (%) (Auto) 76.5, Lymphocytes (%) (Auto) 16.3, Monocytes (%) (Auto) 6.1, Eosinophils (%) (Auto) 0.8, Basophils (%) (Auto) 0.1, Neutrophils # (Auto) 10.17, Lymphocytes # (Auto) 2.17, Monocytes # (Auto) 0.81, Eosinophils # (Auto) 0.10, Basophils # (Auto) 0.01 04/13/17 16:25 Test 04/13/17 16:25 04/13/17 16:45 White Blood Count 13.29 K/uL (4.8-10.8) Red Blood Count 4.42 M/uL (4.2-5.4) Hemoglobin 13.5 g/dL (12.0-16.0) Hematocrit 40.8 % (37-47) Mean Corpuscular Volume 92.3 fL (80-100) Mean Corpuscular Hemoglobin 30.5 pg (25-34) Mean Corpuscular Hemoglobin Concent 33.1 g/dl (32-36) Platelet Count 243 K/uL (130-400) Mean Platelet Volume 9.5 fL (7.4-10.4) Neutrophils (%) (Auto) 76.5 % Lymphocytes (%) (Auto) 16.3 % Monocytes (%) (Auto) 6.1 % Eosinophils (%) (Auto) 0.8 % Basophils (%) (Auto) 0.1 % Neutrophils # (Auto) 10.17 K/uL (1.4-6.5) Lymphocytes # (Auto) 2.17 K/uL (1.2-3.4) Monocytes # (Auto) 0.81 K/uL (0.11-0.59) Eosinophils # (Auto) 0.10 K/uL (0-0.5) Basophils # (Auto) 0.01 K/uL (0-0.2) RDW Standard Deviation 40.6 fL (36.4-46.3) RDW Coefficient of Variation 11.9 % (11.5-14.5) Immature Granulocyte % (Auto) 0.2 % Immature Granulocyte # (Auto) 0.03 K/uL (0.00-0.02) Red Blood Cell Morphology Unremarkable Anion Gap 7.0 mmol/L (3-11) Est Creatinine Clear Calc Drug Dose 102.9 ml/min Estimated GFR () 117.0 Estimated GFR (Non- 100.9 BUN/Creatinine Ratio 13.1 (10-20) Calcium Level 9.9 mg/dl (8.5-10.1) Total Bilirubin 0.4 mg/dl (0.2-1) Aspartate Amino Transf (AST/SGOT) 21 U/L (15-37) Alanine Aminotransferase (ALT/SGPT) 36 U/L (12-78) Alkaline Phosphatase 91 U/L (45-117) Total Protein 7.6 gm/dl (6.4-8.2) Albumin 4.1 gm/dl (3.4-5.0) Globulin 3.5 gm/dl (2.5-4.0) Albumin/Globulin Ratio 1.2 (0.9-2) Lipase 140 U/L (73-393) Chemistry Specimen Hemolysis [place] Level 0.7 mMOL/L (0.6-1.2) Urine Color DK YELLOW Urine Appearance CLOUDY (CLEAR) Urine pH 6.0 (4.5-7.5) Urine Specific [place] 1.038 (1.000-1.030) Urine Protein TRACE (NEG) Urine Glucose (UA) NEG (NEG) Urine Ketones TRACE (NEG) Urine Occult Blood NEG (NEG) Urine Nitrite NEG (NEG) Urine Bilirubin NEG (NEG) Urine Urobilinogen NEG (NEG) Urine Leukocyte Esterase NEG (NEG) Urine WBC (Auto) 1-5 /hpf (0-5) Urine RBC (Auto) 0-4 /hpf (0-4) Urine Hyaline Casts (Auto) 10-30 /lpf (0-5) Urine Epithelial Cells (Auto) >30 /lpf (0-5) Urine Bacteria (Auto) NEG (NEG) Urine Crystals CALCIUM OXALATE (NONE Urine Test NEG (NEG) Date/Time Source Procedure Growth Status 04/13/17 18:55 Stool C.difficile Toxin B Gene (PCR) - Final No C. difficile toxin B gene detected Complete Laboratory results per my review. Medications Administered Medications (Trade) Dose Ordered Sig/Maria D Route Start Time Stop Time Status Last Admin Dose Admin Sodium Chloride (Nss 1000ml) 2,000 ml @ 999 mls/hr Q2H1M STAT IV 04/13/17 16:32 04/13/17 18:32 DC 04/13/17 16:38 999 MLS/HR Ondansetron HCl (Zofran Inj) 4 mg NOW STAT IV 04/13/17 16:32 04/13/17 16:35 DC 04/13/17 16:40 4 MG Ketorolac Tromethamine (Toradol Inj) 30 mg NOW STAT IV 04/13/17 16:32 04/13/17 16:35 DC 04/13/17 16:41 30 MG ED Course ED COURSE: Vital signs were reviewed and showed normal. The patients medical record was reviewed The above diagnostic studies were performed and reviewed. ED treatments and interventions as stated above. 1618: The patient was evaluated in room B08. A complete history and physical examination was performed. 1632: Toradol Inj 30 mg IV, Zofran Inj 4 mg IV, Sodium Chloride 2000 ml @ 999 mls/hr IV 1747: I reevaluated the patient. She denies any cramping or nausea. She is feeling much better. 1858: The patient is currently sleeping. Her stool was never sent. 4: Upon reevaluation, the patient is resting comfortably.I discussed my findings with the patient and she understands and agrees with the treatment plan. Based on the patients age, coexisting illnesses, exam and lab findings the decision to treat as an outpatient was made. The patient remained stable while under my care. The patient appeared well at the time of discharge. Medical Decision Differential diagnoses includes but is not limited to gastritis, peptic ulcer disease, GERD, gallbladder disease, pancreatitis, small bowel obstruction, acute coronary syndrome, pericarditis, ischemic bowel, irritable bowel disease, irritable bowel syndrome, appendicitis, diverticulitis, malignancy, hernia, urinary tract infection, /ectopic (if female), perforation, trauma, infectious. Blood pressure screening: Patient was found to have normal blood pressure on screening and does not require follow-up. Medication Reconciliation: I attest that I have personally reviewed the patient' s current medication list. Patient is a 36-year-old female who presents the ER for abdominal cramping located in the epigastric abdominal region. On exam she does not have any acute tenderness. Labs show a mild leukocytosis of 13,000. BMP along with LFTs , bilirubin and lipase were normal. [place] was 0.7. UA was contaminated with multiple epithelial cells. was negative. Ultrasound of the right upper quadrant was negative. She was given a small dose of Toradol and had complete resolution of her symptoms along with Zofran and normal saline. C. difficile was negative. Hemoglobin was unremarkable. Vitals are stable. She was able to tolerate a full glass of water and had no vomiting for 5 hours. She was discharged follow-up with her primary care doctor. She did complain of pink changed vomited initially and I do favor this is likely secondary to irritation of the esophagus. With her benign exam this is not consistent with a ruptured esophagus or a perfect gastric ulcer. I felt it was reasonable following the observation period to discharge her to have her follow-up with her primary care doctor as she was feeling better with complete resolution of her symptoms. Discussed with Pt concerning signs and symptoms to watch out for. Pt was instructed to follow up with their PCP and discussed with the patient their option to return to the ED at anytime for persistent or worsening symptoms. The appropriate anticipatory guidance and out-patient management, including indications for return to the emergency department, were explained at length to the patient and understood. Impression Primary Impression: Epigastric abdominal pain Scribe Attestation The scribe's documentation has been prepared under my direction and personally reviewed by me in its entirety. I confirm that the note above accurately reflects all work, treatment, procedures, and medical decision making performed by me. Departure Information Dispostion Home / Self-Care Prescriptions Ondansetron Hcl (ZOFRAN) 4 Mg Tab 4 MG PO TID Y for Nausea, #30 TAB Prov: Rocco Santana, DO 04/13/17 Referrals Rowdy Jordan M.D. (PCP) Forms Call Back Authorization, HOME CARE DOCUMENTATION FORM, IMPORTANT VISIT INFORMATION Patient Instructions Abdominal Pain - [facility], [facility] Additional Instructions Please follow up with your primary care doctor with in the next 24 hours. Any worsening of your symptoms, please return to the ED immediately. This includes fevers greater than 100.4, persistent nausea vomiting, unable to eat or drink, worsening abdominal pain, or any other concerning signs or symptoms from your standpoint. Please take Zofran as needed for nausea and vomiting.
[2017-04-13 17:03] LABS: ALB/GLOB RATIO 1.2 (0.9-2); BUN/CREATININE RATIO 13.1 (10-20); CALCIUM 9.9 mg/dl (8.5-10.1); CREATININE 0.76 mg/dl (0.60-1.20); POTASSIUM 3.8 mmol/L (3.5-5.1)
[2017-04-13 17:10] LABS: URINE APPEARANCE CLOUDY (CLEAR); URINE BILIRUBIN NEG (NEG); URINE COLOR DK YELLOW; URINE EPITHELIAL CELL AUTO >30 /lpf (0-5); URINE NITRITE NEG (NEG); URINE SPECIFIC GRAVITY 1.038 (1.000-1.030); UROBILINOGEN NEG (NEG); ZZUR CULT IF INDIC CLEAN CATCH NO
[2017-04-13 17:11] LABS: MANUAL MICROSCOPIC REQUIRED? NO; REVIEW REQ? YES
[2017-04-13 17:27] LABS: BASO % 0.1 %; BASO ABS # 0.01 K/uL (0-0.2); COMPLETE YES; EOS % 0.8 %; IG% 0.2 %; LYMPH % 16.3 %; LYMPH ABS # 2.17 K/uL (1.2-3.4); MONO % 6.1 %; NEUT % 76.5 %
--- NOTE | 2017-04-13 17:35 | DIAGNOSTIC IMAGING REPORT ---
ULTRASOUND RIGHT UPPER QUADRANT ABDOMEN CLINICAL HISTORY: Epigastric abdominal pain. COMPARISON STUDY: Abdominal CT dated 11/17/2016. TECHNIQUE: Real-time, grayscale, and color flow sonography of the right upper quadrant of the abdomen was performed. Images are reviewed in the transverse and longitudinal planes. FINDINGS: Liver: The liver is enlarged and demonstrates heterogeneously increased echotexture consistent with hepatic steatosis. Fatty sparing is noted adjacent to the gallbladder fossa. There is no intrahepatic biliary ductal dilatation. The main portal vein is patent. Gallbladder: The gallbladder is normal in appearance. No gallstones are identified. There is no gallbladder wall thickening or pericholecystic fluid. A sonographic Jc's sign is reportedly absent. The common bile duct measures up to 0.3 cm in diameter. Pancreas: Visualized portions of the pancreatic head and body are normal in appearance. The splenic vein is patent. Right kidney: Survey images of the right kidney demonstrate normal size and echotexture. There is no hydronephrosis. Ascites: None. IMPRESSION: 1. No acute sonographic abnormality is identified in the right upper quadrant. No gallstones are seen. 2. Hepatomegaly and hepatic steatosis. Electronically signed by: Jose Delarosa M.D. 04/13/2017 5:33 PM Dictated Date/Time: 04/13/2017 5:32 PM
[2017-04-13] MEDS ORDERED: CYCL10TA6 PO (20:21)
[2017-04-13] MEDS ORDERED: ONDA4TAB46 PO (21:31)
[2017-04-13] MEDS ORDERED: DIAZ5TAB PO (21:39)
[2017-04-13] MEDS ORDERED: DSY50 PO (21:39)
[2017-04-13] MEDS ORDERED: ZOLP10TA6 PO (21:39)
[2017-04-13 21:51] VITALS: BP 105/66; PULSE 77; TEMP 36.4; O2SAT 99
== END 2017-04-13 21:55 | disposition home or self-care (01) ==
LOC: C.EDB 14:57
DX: R10.13 Epigastric pain (principal); F31.9 Bipolar disorder, unspecified; Z87.891 Personal history of nicotine dependence; Z79.899 Other long term (current) drug therapy

== ENCOUNTER 2017-11-13 04:35 | Emergency (ER) | payer BC ==
[~2017-11-13] VITALS: Ht 167.6 cm; Wt 75.6 kg
[~2017-11-13 04:35] MED LIST changes: +CYCL10TA6 PO; +DIAZ5TAB PO; -FEXO1TAB45 PO; +FEXO5TAB2 PO; -ONDA4TAB10 SL; +TRAZ1TAB49 PO; +ZOLP10TA6 PO
[2017-11-13 04:39] VITALS: TEMP 36.5; Ht 167.6 cm; Wt 75.6 kg
[2017-11-13] MEDS ORDERED: SODIUM CHLORIDE 0.9% 1000ML 1,000 ML IV STA (04:55)
[2017-11-13] MEDS ORDERED: KETOROLAC TROMETHAMINE 30 MG/ML VIAL IV STA (04:55)
[2017-11-13] MEDS ORDERED: ONDANSETRON INJ 2 MG/ML 2 ML VIAL IV STA (04:55)
[2017-11-13 05:21] LABS: BASO % 0.3 %; BASO ABS # 0.03 K/uL (0-0.2); EOS % 0.9 %; EOS ABS # 0.09 K/uL (0-0.5); HEMATOCRIT 42.2 % (37-47); HEMOGLOBIN 14.1 g/dL (12.0-16.0); IG# 0.03 K/uL (0.00-0.02); LYMPH % 18.2 %; LYMPH ABS # 1.79 K/uL (1.2-3.4); MEAN CELL VOLUME 92.3 fL (80-100); MEAN CORPUSCULAR HEMOGLOBIN 30.9 pg (25-34); MEAN CORPUSCULAR HGB CONC 33.4 g/dl (32-36); MEAN PLATELET VOLUME 9.7 fL (7.4-10.4); MONO % 6.4 %; MONO ABS # 0.63 K/uL (0.11-0.59); NEUT % 73.9 %; NEUT ABS # 7.28 K/uL (1.4-6.5); PLATELET COUNT 236 K/uL (130-400); RED CELL DISTRIBUTION WIDTH CV 12.2 % (11.5-14.5); RED CELL DISTRIBUTION WIDTH SD 41.3 fL (36.4-46.3); WHITE BLOOD COUNT 9.85 K/uL (4.8-10.8)
[2017-11-13 05:43] LABS: CALCIUM 9.8 mg/dl (8.5-10.1); CREATININE 0.79 mg/dl (0.60-1.20); POTASSIUM 3.7 mmol/L (3.5-5.1)
[2017-11-13 05:54] LABS: TOTAL PROTEIN 7.4 gm/dl (6.4-8.2)
--- NOTE | 2017-11-13 06:50 | DIAGNOSTIC IMAGING REPORT ---
ABDOMEN 2VIEW W/PA CHEST RTN CLINICAL HISTORY: 37 years-old Female presenting with abd pain and vomiting. TECHNIQUE: PA view of the chest and supine and upright views of the abdomen were obtained. COMPARISON: 02/26/2017. FINDINGS: Cardiomediastinal silhouette normal. Lungs and pleural spaces clear. Nonobstructive bowel gas pattern. No gross pneumoperitoneum. Allowing for bowel gas and stool, no calcifications to suggest nephrolithiasis. Multiple pelvic phleboliths unchanged in distribution. Osseous structures normal. IMPRESSION: 1. No acute cardiopulmonary disease. 2. No radiographic evidence of acute intra-abdominal pathology. Electronically signed by: Kervin Castrejon M.D. 11/13/2017 6:48 AM Dictated Date/Time: 11/13/2017 6:47 AM
[2017-11-13] MEDS ORDERED: FAMO20TA9 PO (06:52)
[2017-11-13 06:55] VITALS: BP 108/80; PULSE 90; O2SAT 97
--- NOTE | 2017-11-13 06:56 | EMERGENCY ROOM VISIT NOTE ---
History Report prepared by Josh: Edward Deluca Under the Supervision of: Dr. Giovanna Gonzales M.D. First contact with patient: 04:43 Chief Complaint: VOMITING Stated Complaint: VOMITING,DIARRHEA History of Present Illness The patient is a 37 year old female who presents to the Emergency Room with complaints of worsening generalized abdominal pain beginning today. She also complains of nausea, and diarrhea. Her pain occasionally radiates to her back. The patient is [place], and states that she may have taken extra doses recently due to being unsure if she had taken her original dose. She denies chance of . She denies any urinary symptoms. Source of History: patient Onset: Today Position: abdomen (generalized) Timing: worsening Associated Symptoms: + nausea, + back pain, + diarrhea, No urinary symptoms Review of Systems See HPI for pertinent positives & negatives. A total of 10 systems reviewed and were otherwise negative. Past Medical & Surgical Medical Problems: (1) Bipolar disorder Family History No pertinent family history Social History Smoking Status: Never Smoker Alcohol Use: occasionally Marital Status: Housing Status: lives with family Occupation Status: unemployed Current/Historical Medications Scheduled Diazepam (Valium), 7.5 MG PO BID [place] Carbonate Ext Rel (Lithobid Ext Rel), 300 MG PO TID Sertraline Hcl (Zoloft), 25 MG PO BID Trazodone HCl (Trazodone HCl), 50 MG PO HS Zolpidem Tartrate (Zolpidem Tartrate), 10 MG PO HS Scheduled PRN Cyclobenzaprine Hcl (Flexeril), 10 MG PO UD PRN for Muscle Spasm Epinephrine (Epipen), 0.3 MG IM UD PRN for ALLERGIC REACTION Famotidine (Pepcid), 20 MG PO BID PRN for GI Upset Allergies Coded Allergies: POLLEN (Unverified Allergy, Unknown, SEASONAL ALLERGIES, 11/13/17) Physical Exam Vital Signs Date Time Temp Pulse Resp B/P (MAP) Pulse Ox O2 Delivery O2 Flow Rate FiO2 11/13/17 06:55 90 20 108/80 97 11/13/17 04:39 36.5 89 20 97/69 100 Room Air Physical Exam Vital signs reviewed. General: Well-appearing female, in no significant distress. HEENT: No scleral icterus, PERRLA, neck supple. Atraumatic. Cardiovascular: Regular rate and rhythm, no extra sounds. Pulmonary: Clear to auscultation bilaterally, normal work of breathing. Abdomen: Soft, nondistended, positive bowel sounds. Epigastric abdominal tenderness to palpation. No rebound or guarding. Musculoskeletal: Atraumatic, no peripheral edema. Neurologic: Patient awake alert and oriented x 3. Skin: Warm, dry, no rash Medical Decision & Procedures ER Provider Diagnostic Interpretation: Radiology results as stated below per my review and radiologist interpretation: ABDOMEN 2VIEW W/PA CHEST RTN FINDINGS: Cardiomediastinal silhouette normal. Lungs and pleural spaces clear. Nonobstructive bowel gas pattern. No gross pneumoperitoneum. Allowing for bowel gas and stool, no calcifications to suggest nephrolithiasis. Multiple pelvic phleboliths unchanged in distribution. Osseous structures normal. IMPRESSION: 1. No acute cardiopulmonary disease. 2. No radiographic evidence of acute intra-abdominal pathology. Electronically signed by: Kervin Castrejon M.D. 11/13/2017 6:48 AM Laboratory Results 11/13/17 05:10 Red Blood Count 4.57, Mean Corpuscular Volume 92.3, Mean Corpuscular Hemoglobin 30.9, Mean Corpuscular Hemoglobin Concent 33.4, Mean Platelet Volume 9.7, Neutrophils (%) (Auto) 73.9, Lymphocytes (%) (Auto) 18.2, Monocytes (%) (Auto) 6.4, Eosinophils (%) (Auto) 0.9, Basophils (%) (Auto) 0.3, Neutrophils # (Auto) 7.28, Lymphocytes # (Auto) 1.79, Monocytes # (Auto) 0.63, Eosinophils # (Auto) 0.09, Basophils # (Auto) 0.03 11/13/17 05:10 Test 11/13/17 05:10 11/13/17 05:55 White Blood Count 9.85 K/uL (4.8-10.8) Red Blood Count 4.57 M/uL (4.2-5.4) Hemoglobin 14.1 g/dL (12.0-16.0) Hematocrit 42.2 % (37-47) Mean Corpuscular Volume 92.3 fL (80-100) Mean Corpuscular Hemoglobin 30.9 pg (25-34) Mean Corpuscular Hemoglobin Concent 33.4 g/dl (32-36) Platelet Count 236 K/uL (130-400) Mean Platelet Volume 9.7 fL (7.4-10.4) Neutrophils (%) (Auto) 73.9 % Lymphocytes (%) (Auto) 18.2 % Monocytes (%) (Auto) 6.4 % Eosinophils (%) (Auto) 0.9 % Basophils (%) (Auto) 0.3 % Neutrophils # (Auto) 7.28 K/uL (1.4-6.5) Lymphocytes # (Auto) 1.79 K/uL (1.2-3.4) Monocytes # (Auto) 0.63 K/uL (0.11-0.59) Eosinophils # (Auto) 0.09 K/uL (0-0.5) Basophils # (Auto) 0.03 K/uL (0-0.2) RDW Standard Deviation 41.3 fL (36.4-46.3) RDW Coefficient of Variation 12.2 % (11.5-14.5) Immature Granulocyte % (Auto) 0.3 % Immature Granulocyte # (Auto) 0.03 K/uL (0.00-0.02) Anion Gap 6.0 mmol/L (3-11) Est Creatinine Clear Calc Drug Dose 101.3 ml/min Estimated GFR () 110.8 Estimated GFR (Non- 95.6 BUN/Creatinine Ratio 11.8 (10-20) Calcium Level 9.8 mg/dl (8.5-10.1) Magnesium Level 1.8 mg/dl (1.8-2.4) Total Bilirubin 0.5 mg/dl (0.2-1) Direct Bilirubin 0.1 mg/dl (0-0.2) Aspartate Amino Transf (AST/SGOT) 12 U/L (15-37) Alanine Aminotransferase (ALT/SGPT) 25 U/L (12-78) Alkaline Phosphatase 82 U/L (45-117) Total Protein 7.4 gm/dl (6.4-8.2) Albumin 4.0 gm/dl (3.4-5.0) Lipase 165 U/L (73-393) Thyroid Stimulating Hormone (TSH) 1.490 uIu/ml (0.300-4.500) [place] Level 0.5 mMOL/L (0.6-1.2) Urine Color YELLOW Urine Appearance CLEAR (CLEAR) Urine pH 5.5 (4.5-7.5) Urine Specific [place] 1.017 (1.000-1.030) Urine Protein NEG (NEG) Urine Glucose (UA) NEG (NEG) Urine Ketones NEG (NEG) Urine Occult Blood NEG (NEG) Urine Nitrite NEG (NEG) Urine Bilirubin NEG (NEG) Urine Urobilinogen NEG (NEG) Urine Leukocyte Esterase SMALL (NEG) Urine WBC (Auto) 1-5 /hpf (0-5) Urine RBC (Auto) 0-4 /hpf (0-4) Urine Hyaline Casts (Auto) 1-5 /lpf (0-5) Urine Epithelial Cells (Auto) >30 /lpf (0-5) Urine Bacteria (Auto) NEG (NEG) Urine Test NEG (NEG) Laboratory results per my review. Medications Administered Medications (Trade) Dose Ordered Sig/Maria D Route Start Time Stop Time Status Last Admin Dose Admin Sodium Chloride 1,000 ml @ 999 mls/hr Q1H1M STAT IV 11/13/17 04:55 11/13/17 05:55 DC 11/13/17 05:09 999 MLS/HR Ondansetron HCl (Zofran Inj) 4 mg NOW STAT IV 11/13/17 04:55 11/13/17 04:58 DC 11/13/17 05:10 4 MG Ketorolac Tromethamine (Toradol Inj) 30 mg NOW STAT IV 11/13/17 04:55 11/13/17 04:58 DC 11/13/17 05:10 30 MG ECG Indication: vomiting Rate (beats per minute): 77 Rhythm: normal sinus Findings: no acute ischemic change, no ectopy ED Course 0455: Past medical records reviewed. The patient was evaluated in room B10. A complete history and physical examination was performed. Ordered Toradol Inj 30 mg IV, Zofran Inj 4 mg IV, Sodium Chloride 1000 ml @ 999 mls/hr IV. 0650: Upon reevaluation, the patient appeared to have improvement of her symptoms. I discussed findings with her. She verbalized agreement of the treatment plan. The patient was discharged home. Medical Decision Differential diagnosis: Etiologies such as appendicitis, diverticulitis, PUD, biliary pathology, UTI, pancreatitis, obstruction, mesenteric ischemia, aortic pathology, infections, inflammatory bowel disease, renal colic, as well as others were entertained. This pt was evaluated and appeared to be in no distress. Pt was anxious and concerned about her lithium level. She felt she was dehydrated d/t mistaking her meds several times this week. IV access was obtained and lab work was drawn. PT was hydrated with 1 L NSS, given IV zofran and IV toradol. Abd XR series is neg for FA or obstruction to my review. Pt was tolerating po fluids without difficulty. She was informed of the findings. She was feeling improved and was d/c to the care of her . Pt will f/u with her PCP this week for reevaluation. He will return to the ED for worsening of symptoms or any medical concerns. Medication Reconcilliation Current Medication List: was personally reviewed by me Blood Pressure Screening Patient's blood pressure: Normal blood pressure Blood pressure disposition: Did not require urgent referral Impression Primary Impression: Diffuse abdominal pain Additional Impression: Nausea Scribe Attestation The scribe's documentation has been prepared under my direction and personally reviewed by me in its entirety. I confirm that the note above accurately reflects all work, treatment, procedures, and medical decision making performed by me. Departure Information Dispostion Home / Self-Care Prescriptions Famotidine (PEPCID) 20 Mg Tab 20 MG PO BID Y for GI Upset, #30 TAB Prov: Giovanna Gonzales M.D. 11/13/17 Referrals Rowdy Jordan M.D. (PCP) Forms HOME CARE DOCUMENTATION FORM, IMPORTANT VISIT INFORMATION Patient Instructions My [facility] Additional Instructions Diagnosis: Diffuse abdominal pain, nausea Pepcid 20 mg twice daily as needed for gastritis. Drink plenty of clear fluids. Take your medications as prescribed. Follow-up with your primary care physician this week for reevaluation. Return to the ER for worsening of symptoms or any medical concerns. Problem Qualifiers
== END 2017-11-13 06:56 | disposition home or self-care (01) ==
LOC: C.EDB 04:36
DX: R10.84 Generalized abdominal pain (principal); R11.0 Nausea; R19.7 Diarrhea, unspecified; F31.9 Bipolar disorder, unspecified